=== PATIENT | female | born 1990 | race Caucasian/White ===

== ENCOUNTER 2018-09-26 17:00 | Emergency (ER) | payer OTHER ==
[2018-09-26] MEDS ORDERED: BUFFERED LIDOCAINE 10 ML SYRINGE SUBQ STA (17:21)
[2018-09-26] MEDS ORDERED: TETANUS/DIPHTHERIA/PERTUSSIS 0.5 ML SYRINGE IM ONE (17:21)
--- NOTE | 2018-09-26 17:23 | ED Physician Documentation ---
PD HPI UPPER EXT INJURY - Stated complaint Stated Complaint: L INDEX FINGER LAC - Chief complaint Chief Complaint: Laceration - History obtained from History obtained from: Patient - History of Present Illness Location: Left (Right-handed woman who is not up-to-date on tetanus cut her left index finger with a knife at home just prior to arrival) Review of Systems Constitutional: reports: Reviewed and negative Cardiac: reports: Reviewed and negative Respiratory: reports: Reviewed and negative PD PAST MEDICAL HISTORY - Allergies Allergies/Adverse Reactions: Allergies Allergy/AdvReac Type Severity Reaction Status Date / Time cefaclor [From Ceclor] Allergy Hives Verified 09/26/18 17:06 PD ED PE NORMAL - Vitals Vital signs reviewed: Yes - General General: Alert and oriented X 3, No acute distress - Extremities Extremities: Other (On the pulp of the left index finger, radial side there is a 1 cm laceration changes Fout without distal neurovascular compromise, there is no nailbed involvement.) - Neuro Neuro: Alert and oriented X 3, Normal speech Results - Vitals Vitals: Vital Signs - 24 hr 09/26/18 09/26/18 09/26/18 17:06 17:30 17:43 Temperature 36.6 C Heart Rate 80 65 76 Respiratory 16 18 16 Rate Blood Pressure 122/71 110/59 L 107/58 L O2 Saturation 99 100 100 Oxygen O2 Source Room air Procedures - Laceration (location) L 2nd finger Length in cm: 1 Wound type: Linear, Curved Neurovascular status: Sensory intact, Motor intact, Vascular intact Anesthesia: Lidocaine 1%, With bicarb Wound Preparation: Irrigated copiously NS Skin layer closure: Nylon, Interrupted, Size #-0 - enter number (4-0), Sutures - enter # (2) Other: Tetanus booster given Complexity: Simple Departure - Departure Disposition: 01 Home, Self Care Clinical Impression: Laceration Condition: Good Record reviewed to determine appropriate education?: Yes Instructions: ED Laceration Hand Comments: Come back for any signs of infection which would include: Redness, swelling, drainage, increased pain, or fevers. You can wash it soap and water. Keep it covered and moist with bacitracin ointment which is available over the counter; avoid neosporin. Follow-up with your physician in 10-14 days for suture removal.
[2018-09-26 17:49] VITALS: BP 107/65
== END 2018-09-26 18:00 | disposition home or self-care (01) ==
LOC: ED 17:00
DX: S61.211A Laceration without foreign body of left index finger without damage to nail, initial encounter (principal); W26.0XXA Contact with knife, initial encounter; Y93.G1 Activity, food preparation and clean up
CPT/HCPCS: 12001; 90471; 99282

== ENCOUNTER 2019-10-12 21:27 | Emergency (ER) | payer OTHER ==
[2019-10-12 21:33] VITALS: BP 145/79
--- NOTE | 2019-10-12 21:36 | ED Physician Documentation ---
PD HPI FEMALE - Stated complaint Stated Complaint: FEMAL - Chief complaint Chief Complaint: UTI - History obtained from History obtained from: Patient - History of Present Illness Timing - onset: Yesterday Timing - duration: Days (1) Timing - details: Gradual onset Pain level max: 3 Pain level max: 3 Associated symptoms: Dysuria, Urinary frequency, Hematuria. No: Vaginal pain, Vaginal bleeding Contributing factors: No: Similar symptoms before: Diagnosis (Similar to past UTIs. Took Pyridium prior to arrival in the emergency department) Recently seen: Not recently seen Review of Systems Constitutional: denies: Fever, Chills GI: denies: Abdominal Pain, Nausea, Vomiting, Diarrhea : reports: Dysuria, Frequency, Hesitancy, Hematuria Skin: denies: Rash Musculoskeletal: denies: Neck pain, Back pain Neurologic: denies: Headache PD PAST MEDICAL HISTORY - Past Medical History Cardiovascular: None Respiratory: None Neuro: None Endocrine/Autoimmune: None GI: None WAREHOUSING TECHNICIAN: None : None HEENT: None Psych: None Musculoskeletal: None Derm: None - Past Surgical History Past Surgical History: Yes General: Other HEENT: Other - Present Medications Home Medications: Ambulatory Orders Medication Instructions Recorded Confirmed Nitrofurantoin Monohyd/M-Cryst 100 mg PO BID #10 capsule 10/12/19 [Macrobid 100 mg Capsule] Phenazopyridine HCl [Pyridium] 200 mg PO TID PRN #6 tablet 10/12/19 - Allergies Allergies/Adverse Reactions: Allergies Allergy/AdvReac Type Severity Reaction Status Date / Time cefaclor [From Ceclor] Allergy Hives Verified 10/12/19 21:30 - Social History Does the pt smoke?: No Smoking Status: Never smoker Does the pt drink ETOH?: No - Immunizations Immunizations are current?: No - POLST Patient has POLST: No PD ED PE NORMAL - Vitals Vital signs reviewed: Yes - General General: Alert and oriented X 3, No acute distress, Well developed/nourished - HEENT HEENT: Moist mucous membranes - Neck Neck: Supple, no meningeal sign - Abdomen Abdomen: Soft, Non tender, Non distended - Back Back: No CVA TTP, No spinal TTP - Derm Derm: Warm and dry - Extremities Extremities: No edema - Neuro Neuro: Alert and oriented X 3 - Psych Psych: Normal mood, Normal affect Results - Vitals Vitals: Vital Signs - 24 hr 10/12/19 21:30 Temperature 36.6 C Heart Rate 88 Respiratory 14 Rate Blood Pressure 145/79 H O2 Saturation 97 Oxygen O2 Source Room air - Labs Labs: Laboratory Tests 10/12/19 21:37 Urine Color DK. ORANGE Urine Clarity CLOUDY Urine pH Ur Specific [place] Urine Protein Urine Glucose (UA) Urine Ketones Urine Occult Blood Urine Nitrite Urine Bilirubin Urine Urobilinogen Ur Leukocyte Esterase Ur Microscopic Review INDICATED Urine Culture Comments Not Reportable Urine HCG, Qual NEGATIVE PD MEDICAL DECISION MAKING - ED course Complexity details: reviewed results, considered differential, d/w patient ED course: 29-year-old female with a UTI. Will place on Macrobid. She is well-appearing, nontoxic. Afebrile. No evidence of pyelonephritis or sepsis. Patient counseled regarding signs and symptoms for which I believe and urgent re- evaluation would be necessary. Patient with good understanding of and agreement to plan and is comfortable going home at this time This document was made in part using voice recognition software. While efforts are made to proofread this document, sound alike and grammatical errors may occur. Departure - Departure Disposition: 01 Home, Self Care Clinical Impression: Urinary tract infection Qualifiers: Urinary tract infection type: acute cystitis Hematuria presence: with hematuria Qualified Code(s): N30.01 - Acute cystitis with hematuria Condition: Good Instructions: ED UTI Cystitis Female Follow-Up: Miguel Peralta ARNP [Primary Care Provider] - As Needed Prescriptions: Nitrofurantoin Monohyd/M-Cryst [Macrobid 100 mg Capsule] 100 mg PO BID #10 capsule Phenazopyridine HCl [Pyridium] 200 mg PO TID PRN #6 tablet PRN Reason: dysuria Comments: Take all antibiotics until gone. Return if you worsen.
[2019-10-12] MEDS ORDERED: NITROFURANTOIN MACRO 100 MG CAPSULE PO STA (21:45)
[2019-10-12 21:47] LABS: CLARITY,URINE CLOUDY (CLEAR)
[2019-10-12 21:49] LABS: HCG UR QUAL NEGATIVE
[2019-10-12 21:52] LABS: BACTERIA,URINE Moderate /HPF (None Seen); RBC,URINE TNTC /HPF (0-5); SQUAMOUS EPITHELIAL CELL,UR FEW Squamous (<= Few)
== END 2019-10-12 21:53 | disposition home or self-care (01) ==
LOC: ED 21:27
DX: N30.01 Acute cystitis with hematuria (principal)
CPT/HCPCS: 81001; 81025; 87086; 99283; 99284; A9270; 81003

== ENCOUNTER 2020-06-26 15:09 | Emergency (ER) | payer OTHER ==
--- NOTE | 2020-06-26 15:44 | ED Physician Documentation ---
PD HPI CHEST PAIN - Stated complaint Stated Complaint: SOA, RAPID HEART RATE - Chief complaint Chief Complaint: Cardiac - History obtained from History obtained from: Patient - Additional information Additional information: 29-year-old woman has had some on and off palpitations over the last year especially with running. Starting 5 days ago they acutely became much more worse, more frequent, uncomfortable. She notes they are much worse when she is supine. She is now short of breath with them. No Pedal edema or calf pain. She does have episodes of dizziness with this. Not on control, no recent travel. Review of Systems Ten Systems: 10 systems reviewed and negative Constitutional: denies: Fever, Chills Cardiac: reports: Chest pain / pressure, Palpitations. denies: Pedal edema, Calf pain Respiratory: reports: Dyspnea. denies: Cough, Hemoptysis, Wheezing PD PAST MEDICAL HISTORY - Past Medical History Cardiovascular: None Respiratory: None Neuro: None Endocrine/Autoimmune: None GI: None CURATORIAL SPECIALIST: None : None HEENT: None Psych: None Musculoskeletal: None Derm: None - Past Surgical History Past Surgical History: Yes General: Other HEENT: Other - Present Medications Home Medications: Ambulatory Orders Medication Instructions Recorded Confirmed Nitrofurantoin Monohyd/M-Cryst 100 mg PO BID #10 capsule 10/12/19 [Macrobid 100 mg Capsule] Phenazopyridine HCl [Pyridium] 200 mg PO TID PRN #6 tablet 10/12/19 Magnesium Oxide [Mag Ox] 400 mg PO DAILY #30 tablet 06/26/20 Metoprolol Tartrate [Lopressor] 25 mg PO BID #60 tablet 06/26/20 Potassium Chloride 10 meq PO DAILY #30 06/26/20 - Allergies Allergies/Adverse Reactions: Allergies Allergy/AdvReac Type Severity Reaction Status Date / Time cefaclor [From [facility]] Allergy Hives Verified 06/26/20 15:26 - Social History Does the pt smoke?: No Smoking Status: Never smoker Does the pt drink ETOH?: No - Immunizations Immunizations are current?: No - POLST Patient has POLST: No PD ED PE NORMAL - Vitals Vital signs reviewed: Yes - General General: Alert and oriented X 3, No acute distress - HEENT HEENT: PERRL, EOMI - Neck Neck: Supple, no meningeal sign, No bony TTP - Cardiac Cardiac: No murmur, Other (Rapid and irregular, corresponding to bigeminy on the monitor and EKG.) - Respiratory Respiratory: No respiratory distress, Clear bilaterally - Abdomen Abdomen: Non tender - Back Back: No CVA TTP - Derm Derm: Normal color, Warm and dry - Extremities Extremities: No edema, No calf tenderness / cord - Neuro Neuro: Alert and oriented X 3, Normal speech Results - Vitals Vitals: Vital Signs - 24 hr 06/26/20 06/26/20 06/26/20 15:15 15:56 16:26 Temperature 36.0 C L Heart Rate 113 H 86 87 Respiratory 20 20 16 Rate Blood Pressure 144/70 H 134/85 H 111/75 O2 Saturation 100 99 99 06/26/20 06/26/20 06/26/20 16:30 17:00 17:30 Temperature Heart Rate 88 78 68 Respiratory 18 18 20 Rate Blood Pressure 116/73 110/91 H 121/72 O2 Saturation 99 100 98 06/26/20 18:00 Temperature Heart Rate 77 Respiratory 16 Rate Blood Pressure 107/86 H O2 Saturation 100 Oxygen O2 Source Room air - EKG (time done) 1520 Rate: Rate (enter#) (111) Rhythm: Sinus tachycardia (w bigemity), LAE Intervals: Normal RI QRS: Normal Ischemia: Non specific changes Computer interpretation: Agree with computer - Labs Labs: Laboratory Tests 06/26/20 06/26/20 06/26/20 15:48 15:48 15:48 WBC 10.2 RBC 4.58 Hgb 14.4 Hct 43.0 MCV 93.9 MCH 31.4 H MCHC 33.5 RDW 11.2 L Plt Count 335 MPV 9.7 Neut # (Auto) 7.2 H Lymph # (Auto) 2.2 [place] # (Auto) 0.7 Eos # (Auto) 0.1 Baso # (Auto) 0.0 Absolute Nucleated RBC 0.00 Nucleated RBC % 0.0 Sodium 139 Potassium 3.8 Chloride 96 L Carbon Dioxide 25 Anion Gap 18.0 H BUN 12 Creatinine 0.7 Estimated GFR (MDRD) 98 Glucose 134 H Calcium 9.9 Magnesium 1.8 Total Bilirubin 0.9 AST 17 ALT 15 Alkaline Phosphatase 37 L Troponin I High Sens Total Protein 8.4 H Albumin 4.8 Globulin 3.6 Albumin/Globulin Ratio 1.3 TSH 2.27 Urine Color Urine Clarity Urine pH Ur Specific [place] Urine Protein Urine Glucose (UA) Urine Ketones Urine Occult Blood Urine Nitrite Urine Bilirubin Urine Urobilinogen Ur Leukocyte Esterase Ur Microscopic Review Urine Culture Comments Urine HCG, Qual 06/26/20 06/26/20 06/26/20 15:48 16:04 17:25 WBC RBC Hgb Hct MCV MCH MCHC RDW Plt Count MPV Neut # (Auto) Lymph # (Auto) [place] # (Auto) Eos # (Auto) Baso # (Auto) Absolute Nucleated RBC Nucleated RBC % Sodium Potassium Chloride Carbon Dioxide Anion Gap BUN Creatinine Estimated GFR (MDRD) Glucose Calcium Magnesium Total Bilirubin AST ALT Alkaline Phosphatase Troponin I High Sens 18.0 H* 17.3 H* Total Protein Albumin Globulin Albumin/Globulin Ratio TSH Urine Color YELLOW Urine Clarity CLEAR Urine pH 6.5 Ur Specific [place] 1.010 Urine Protein NEGATIVE Urine Glucose (UA) NEGATIVE Urine Ketones NEGATIVE Urine Occult Blood NEGATIVE Urine Nitrite NEGATIVE Urine Bilirubin NEGATIVE Urine Urobilinogen 0.2 (NORMAL) Ur Leukocyte Esterase NEGATIVE Ur Microscopic Review NOT INDICATED Urine Culture Comments NOT INDICATED Urine HCG, Qual NEGATIVE PD MEDICAL DECISION MAKING - ED course ED course: This is a young lady with history of mitral valve prolapse but no other heart disease with kind of chronic palpitations much worse over the last 5 days and is found to be in bigeminy here. She has a mildly low potassium and magnesium and these are supplemented. We will recheck her troponin which is very modestly elevated. I discussed the case by phone with Dr. Jauregui, on-call software tools developer in [facility] where that she will be following up and he agrees with the plan and starting her on metoprolol, 25 mg twice a day. Departure - Departure Disposition: 01 Home, Self Care Clinical Impression: Ventricular bigeminy Condition: Good Instructions: ED Dysrhythmia Unspecified Prescriptions: Metoprolol Tartrate [Lopressor] 25 mg PO BID #60 tablet Magnesium Oxide [Mag Ox] 400 mg PO DAILY #30 tablet Potassium Chloride 10 meq PO DAILY #30 Comments: Follow-up with the software tools developer as scheduled. Return for new or worsening symptoms. Discharge Date/Time: 06/26/20 18:14
[2020-06-26 15:54] LABS: BASOPHILS % (AUTO) 0.3 %; EOSINOPHILS # (AUTO) 0.1 10^3/uL (0.0-0.7); EOSINOPHILS % (AUTO) 0.7 %; HGB - HEMOGLOBIN 14.4 g/dL (12.0-16.0); LYMPHOCYTES # (AUTO) 2.2 10^3/uL (1.5-3.5); LYMPHOCYTES % (AUTO) 21.4 %; MEAN CORPUSCULAR HEMOGLOBIN 31.4 pg (27.0-31.0); MEAN CORPUSCULAR HGB CONC 33.5 g/dL (32.0-36.0); MEAN CORPUSCULAR VOLUME 93.9 fL (81.0-99.0); MEAN PLATELET VOLUME 9.7 fL (7.9-10.8); MONOCYTES # (AUTO) 0.7 10^3/uL (0.0-1.0); MONOCYTES % (AUTO) 6.7 %; NEUTROPHILS # (AUTO) 7.2 10^3/uL (1.5-6.6); NEUTROPHILS % (AUTO) 70.4 %; PLT - PLATELET COUNT 335 10^3/uL (130-450); RED BLOOD COUNT 4.58 10^6/uL (4.20-5.40); RED CELL DISTRIBUTION WIDTH 11.2 % (12.0-15.0); WHITE BLOOD COUNT 10.2 x10^3/uL (4.8-10.8)
[2020-06-26 16:14] LABS: ALBUMIN 4.8 g/dL (3.2-5.5); ALBUMIN/GLOBULIN RATIO 1.3 (1.0-2.2); BILIRUBIN,TOTAL 0.9 mg/dL (0.2-1.0); CALCIUM 9.9 mg/dL (8.5-10.3); CREATININE 0.7 mg/dL (0.4-1.0); MAGNESIUM 1.8 mg/dL (1.7-2.8); POTASSIUM 3.8 mmol/L (3.5-5.0); TOTAL PROTEIN 8.4 g/dL (6.7-8.2)
[2020-06-26] MEDS ORDERED: POTASSIUM CHLOR 10 MEQ/100 ML 10 MEQ/100 ML BAG IV STA (16:15)
[2020-06-26] MEDS ORDERED: SODIUM CHLORIDE 0.9% 1,000 ML IV STA (16:15)
[2020-06-26 16:21] LABS: BILIRUBIN,URINE NEGATIVE (NEGATIVE); CLARITY,URINE CLEAR (CLEAR); GLUCOSE, URINE (UA) NEGATIVE (NEGATIVE); HCG UR QUAL NEGATIVE; KETONES,URINE (UA) NEGATIVE (NEGATIVE); LEUKOCYTE ESTERASE, URINE NEGATIVE (NEGATIVE); NITRITE,URINE NEGATIVE (NEGATIVE); OCCULT BLOOD,URINE NEGATIVE (NEGATIVE); PH,URINE 6.5 PH (5.0-7.5); PROTEIN,URINE NEGATIVE (NEGATIVE); UROBILINOGEN,URINE 0.2 (NORMAL) E.U./dL (NORMAL)
[2020-06-26] MEDS ORDERED: METOPROLOL 5 MG/5 ML VIAL IVP STA (16:36)
[2020-06-26] MEDS ORDERED: METOPROLOL TARTRATE 50 MG TABLET PO STA (17:30)
[2020-06-26] MEDS ORDERED: MAGNESIUM OXIDE 400 MG TABLET PO STA (17:40)
[2020-06-26 18:05] VITALS: BP 107/86
== END 2020-06-26 18:14 | disposition home or self-care (01) ==
LOC: ED 15:09
DX: R00.0 Tachycardia, unspecified (principal); R00.8 Other abnormalities of heart beat; I34.1 Nonrheumatic mitral (valve) prolapse; R79.89 Other specified abnormal findings of blood chemistry
CPT/HCPCS: 36415; 80053; 81003; 81025; 83735; 84443; 84484; 85025; 93005; 96365; 96375; 99284; 99285; A9270; 81001; 87086

== ENCOUNTER 2020-06-29 13:56 | Emergency (ER) | payer OTHER ==
[2020-06-29] MEDS ORDERED: SODIUM CHLORIDE 0.9% 1,000 ML IV STA (14:09)
[2020-06-29] MEDS ORDERED: METOPROLOL 5 MG/5 ML VIAL IVP STA (14:21)
--- NOTE | 2020-06-29 14:26 | ED Physician Documentation ---
PD HPI DYSPNEA - Stated complaint Stated Complaint: SOA,HEART PALPUTATIONS - Chief complaint Chief Complaint: Cardiac - History obtained from History obtained from: Patient - Additional information Additional information: Patient comes emergency department chief complaint of palpitations. She states this is been going on for the last year on and off, but has gotten especially worse over the last week. She was seen here a few days ago and worked up with laboratory studies and started on metoprolol, as per cardiology recommendation. The patient is actually scheduled to follow-up with cardiology on the of this month for the same, but states that her palpitations really seem to get worse today, and she has been very uncomfortable with this. She states that she is not sleeping well at night and has been tired. She attributes the lack of sleep to the discomfort in the palpitations. Patient states she is fit and runs on a regular basis, but that the running has seem to make this condition worse. Patient denies any chest pain per se; she states it is more of a pressure-like sensation that goes into her armpits bilaterally. No nausea or diaphoresis. Patient states she gets an occasional lightheaded feeling when she has a lot of palpitations. Patient's not been ill with anything else. No other complaints at this time. Review of Systems Ten Systems: 10 systems reviewed and negative Constitutional: reports: Reviewed and negative Eyes: reports: Reviewed and negative Ears: reports: Reviewed and negative Nose: reports: Reviewed and negative Throat: reports: Reviewed and negative Cardiac: reports: Chest pain / pressure, Palpitations Respiratory: reports: Reviewed and negative GI: reports: Reviewed and negative : reports: Reviewed and negative Skin: reports: Reviewed and negative Musculoskeletal: reports: Reviewed and negative Neurologic: reports: Reviewed and negative Psychiatric: reports: Reviewed and negative Endocrine: reports: Reviewed and negative Immunocompromised: reports: Reviewed and negative PD PAST MEDICAL HISTORY - Past Medical History Cardiovascular: None Respiratory: None Neuro: None Endocrine/Autoimmune: None GI: None BUSPERSON: None : None HEENT: None Psych: None Musculoskeletal: None Derm: None - Past Surgical History Past Surgical History: Yes General: Other HEENT: Other - Present Medications Home Medications: Ambulatory Orders Medication Instructions Recorded Confirmed Magnesium Oxide [Mag Ox] 400 mg PO DAILY #30 tablet 06/26/20 06/29/20 Metoprolol Tartrate [Lopressor] 25 mg PO BID #60 tablet 06/26/20 06/29/20 Potassium Chloride 10 meq PO DAILY #30 06/26/20 06/29/20 - Allergies Allergies/Adverse Reactions: Allergies Allergy/AdvReac Type Severity Reaction Status Date / Time cefaclor [From [facility]] Allergy Hives Verified 06/29/20 14:01 - Social History Does the pt smoke?: No Smoking Status: Never smoker Does the pt drink ETOH?: No - Immunizations Immunizations are current?: No - POLST Patient has POLST: No PD ED PE NORMAL - Vitals Vital signs reviewed: Yes - General General: Alert and oriented X 3, No acute distress, Well developed/nourished - HEENT HEENT: Atraumatic, PERRL, EOMI, Moist mucous membranes - Neck Neck: Supple, no meningeal sign - Cardiac Cardiac: No murmur, Other (Intermittently irregular rhythm with normal rate.) - Respiratory Respiratory: No respiratory distress, Clear bilaterally - Abdomen Abdomen: Soft, Non tender, Non distended - Derm Derm: Normal color, Warm and dry, No rash - Extremities Extremities: No deformity, No edema, No calf tenderness / cord - Neuro Neuro: Alert and oriented X 3, global implementation manager 2-12 intact, Normal speech - Psych Psych: Normal mood, Normal affect Results - Vitals Vitals: Vital Signs - 24 hr 06/29/20 06/29/20 06/29/20 14:01 14:23 14:25 Temperature 36.7 C Heart Rate 82 82 Respiratory 16 19 Rate Blood Pressure 126/67 143/90 H 123/75 O2 Saturation 100 100 06/29/20 06/29/20 06/29/20 14:28 14:35 14:36 Temperature Heart Rate 80 79 86 Respiratory 15 16 16 Rate Blood Pressure 115/67 102/68 119/69 O2 Saturation 100 100 100 06/29/20 06/29/20 06/29/20 14:45 14:55 15:00 Temperature Heart Rate 65 80 61 Respiratory 16 18 19 Rate Blood Pressure 105/83 H 110/69 108/74 O2 Saturation 100 99 100 06/29/20 06/29/20 06/29/20 15:06 15:10 15:15 Temperature Heart Rate 73 75 76 Respiratory 17 17 18 Rate Blood Pressure 113/56 L 116/70 111/69 O2 Saturation 100 100 100 06/29/20 15:30 Temperature Heart Rate 72 Respiratory 17 Rate Blood Pressure 135/60 H O2 Saturation 100 Oxygen O2 Source Room air - EKG (time done) 1359 Rate: Rate (enter#) (102) Rhythm: NSR [place]: Normal Intervals: Normal [place] QRS: Normal Ischemia: Normal ST segments, Non specific changes Other comments: Other comments (frequent PVCs, intermittent bigeminy) Compare to prior EKG: Unchanged from prior EKG Computer interpretation: Disagree with computer (disagree with "ischemia") PD MEDICAL DECISION MAKING - ED course Complexity details: reviewed results, re-evaluated patient, considered differential, d/w patient ED course: Patient's monitor reading and EKG both demonstrated intermittent PVCs with occasional runs of bigeminy and occasional runs of uninterrupted normal sinus beats. She was given an IV dose of metoprolol 10 mg here in the emergency department with significant improvement in, though not complete resolution of her PVCs. The patient underwent echocardiogram here in the emergency department, and the preliminary reading was normal. However, final cardiology reading is still pending at this time. I discussed with the patient that she is hemodynamically stable, and that perhaps it would be helpful to increase her metoprolol for better symptomatic control. I have given her a p.o. dose of metoprolol 25 mg here in the emergency department, as she has a solidly normal blood pressure. We have discussed that the mainstay at this point is going to be symptomatic management until she can see cardiology, as there is no indication for emergent intervention at this time. Patient expressed understanding. We have discussed the usual indications for return. Departure - Departure Disposition: 01 Home, Self Care Clinical Impression: Frequent PVCs Condition: Stable Instructions: ED Palpitations Comments: The preliminary reading on your heart ultrasound, or echocardiogram, looks good. It is not clear why you have had the sudden uptick in your PVCs; however, they have responded fairly well to the metoprolol you were given here in the emergency department. Since you are not getting good control at home with the current dose, we will have you increase your dose to 37.5 mg twice daily, or 1.5 pills per dose. Please continue your plan to follow-up with cardiology as scheduled.
[2020-06-29] MEDS ORDERED: METOPROLOL TARTRATE 50 MG TABLET PO STA (15:53)
[2020-06-29 16:29] VITALS: BP 115/66
== END 2020-06-29 16:36 | disposition home or self-care (01) ==
LOC: ED 13:56
DX: I49.3 Ventricular premature depolarization (principal); R00.8 Other abnormalities of heart beat
CPT/HCPCS: 93005; 93306; 96361; 96374; 99284; A9270

== ENCOUNTER 2020-07-28 15:16 | Outpatient (CLI) | payer OTHER ==
--- NOTE | 2020-07-29 10:01 | Ultrasound Report ---
PROCEDURE: Head or Neck Soft Tissue INDICATIONS: PALPITATIONS TECHNIQUE: Real time scanning was performed of the neck region of interest, with image documentation . COMPARISON: None. FINDINGS: No soft tissue neck abnormality seen bilaterally. No suspicious mass, fluid collection, or adenopathy. No areas of abnormal vascularity. IMPRESSION: No sonographic abnormalities identified in the area of patient concern. Reviewed by: Modesto Mane MD on 07/29/2020 9:59 AM PDT Approved by: Modesto Mane MD on 07/29/2020 9:59 AM PDT Station ID: [id number]
== END 2020-07-28 15:17 | disposition home or self-care (01) ==
LOC: DI 15:16
PROVIDERS: ATTEND Internal Medicine
DX: R00.2 Palpitations (principal)